=== PATIENT | male | born 1965 | race Caucasian/White ===

== ENCOUNTER 2020-02-18 18:02 | Emergency (ER) | payer BC, SELFPAY ==
[2020-02-18] VITALS (13 sets, daily range): BP systolic 186–228; BP diastolic 119–139; PULSE 69–99; RESP 9–31; TEMP 37.4; O2SAT 93–100
--- NOTE | ~2020-02-18 | XR_ITS ---
EXAMINATION: XR abdomen/kub 1V EXAM DATE: 02/18/2020 19:12 INDICATION: Left flank pain, 4mm UVJ stone TECHNIQUE: Frontal projection of the upper abdomen, frontal projection lower abdomen/pelvis for inter pretation. Correlation is made to CT abdomen pelvis same date. FINDINGS: Left UVJ stone likely identified, indicated. Nonobstructive bowel gas pattern. Mild bony de generative changes. IMPRESSION: Left UVJ stone likely identified. Reviewed, dictated and finalized at location A. [employer]
--- NOTE | ~2020-02-18 | CT_ITS ---
EXAMINATION: CT abdomen pelvis wo con EXAM DATE: 02/18/2020 18:46 INDICATION: Left Flank Pain. History kidney stones. TECHNIQUE: Spiral CT of the abdomen and pelvis was performed without contrast. Axial, coronal and sag ittal images were reviewed. The dose-length product (DLP) for this examination was 983.28 mGy-cm. T he exposure was tailored according to patient size (auto mA exposure control), and iterative reconstr uction (ASIR) was used as additional dose reduction technique. There is no prior study for compariso n. FINDINGS: Left ureterovesicular junction 4 cm stone, mild obstructive nephropathy. No other genitouri nary calcifications. The prostate is unremarkable. The bladder is unremarkable. The liver, spleen, adrenal glands and pancreas are unremarkable. Gallbladder is unremarkable. No biliary obstruction. There is no retroperitoneal or pelvic lymphadenopathy. There is mild scattered arteriosclerotic d isease. The appendix is normal. The stomach and small bowel are unremarkable. There is mild sigmoid colonic diverticulosis. There is no adjacent inflammatory change to suggest diverticulitis. No free intrape ritoneal gas. The heart is normal in size. There are no pericardial or pleural effusions. Small a mount of right lung base postinfectious residua. There are no osteoblastic or osteolytic lesions la ntified. Left-sided spondylolysis. IMPRESSION: Left UVJ 4 mm stone, mild obstructive nephropathy. Urologist consultants would appreciate KUB as baseline for follow-up, treatment planning. Reviewed, dictated and finalized at location A. [employer] IMPRESSION: Left UVJ 4 mm stone, mild obstructive nephropathy. Urologist valeriy palacios would appreciate KUB as baseline for follow-up, treatment planning.
[2020-02-18] MEDS: ONDANSETRON INJ 4 MG/2 ML VIAL IV PUSH (18:22)
[2020-02-18] MEDS: HYDROmorphone HCL INJ (*CRX) 2 MG/ML VIAL 1 MG IV PUSH (18:22)
--- NOTE | 2020-02-18 18:23 | ED.ABDPAIN ---
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 Related Data Allergies Allergy/AdvReac Type Severity Reaction Status Date / Time No Known Allergies Allergy Verified 02/18/20 18:31 Review of Systems Review of Systems: All systems reviewed & are unremarkable except as noted in HPI and below PMFSH Family History Family History Mother Acute myocardial infarction Social History Social History Smoking status: Current every day smoker Exam Const: General: alert and ill appearing Orientation/consciousness: patient oriented x3 Chest: Chest palpation & inspection: normal inspection of the chest Resp: Effort & Inspection: normal respiratory effort Cardio: Rate: regular rate Rhythm: regular rhythm GI: Inspection: non-distended GI Palp: Yes Soft to palpation, No Tenderness to palpation present (GI), No Guarding due to palpation present (GI) and No Rigid due to palpation Back/Spine/Pelvis: Back: CVA tenderness (Left CVA TTP) Skin: General skin exam: normal color Neuro: General: patient oriented x3, moves all extremities, no meningeal signs, no focal motor deficits and CN's II-XI intact bilaterally Cranial nerves: Yes Nystagmus not present Extrem: General: normal to inspection Psych: Mental Status: mental status grossly normal MDM - Abdominal Pain MDM Narrative Medical decision making narrative: Discussed results of w/u with patient who has a 4mm L UVJ stone. he is Ok with outpt management. Differential Diagnosis Differential diagnosis: Likely abdominal pain, calculus of kidney, diverticulitis, gastroenteritis and pancreatitis Medical Records Attestation: I reviewed the patient's medical records. Critical Care Time Critical Care Time Critical Care Time: No Discharge Plan Discharge Clinical Impression: Left ureteral calculus Patient Disposition: Home, Self-Care Condition: Improved Instructions: Antibiotic Form, Kidney Stones (ED) Additional Instructions: Encourage fluids and strain urine. F/U with PCP in 3-5 days for urology referral. Prescriptions: New hydrocodone-acetaminophen [[place]] 5-325 mg tablet 1 tablet PO Q6H PRN (Reason: pain) Qty: 20 RF: 0 ketorolac 10 mg tablet 10 mg PO Q6H 5 Days Qty: 20 RF: 0 tamsulosin [Flomax] 0.4 mg capsule 0.4 mg PO DAILY Qty: 10 RF: 0 ondansetron 4 mg tablet,disintegrating 4 mg PO Q8H PRN (Reason: nausea and vomiting) Qty: 20 RF: 0 Follow-up/Referrals: UNKNOWN,DOCTOR [Primary Care Provider] - Time of Disposition: 19:06
[2020-02-18] MEDS: SODIUM CHLORIDE 0.9% IV 1,000 ML 999 ML IV CONT (18:50)
[2020-02-18 18:55] LABS: Hemoglobin 14.5 g/dL (14.0-18.0); Red Blood Count 4.81 M/mm3 (4.70-6.10)
[2020-02-18 18:56] LABS: Hematocrit 42.7 % (40.0-54.0); Immature Granulocyte Percent A 0.3 % (0.0-0.0); Lymphocytes Percent Auto 19.1 % (18.0-42.0); Mean Corpuscular Hemoglobin 30.1 pg (27.0-31.0); Mean Corpuscular Volume 88.8 fL (78.0-102.0); Mean Platelet Volume 9.8 fl (8.7-11.0); Monocytes Percent Auto 5.6 % (2.0-11.0); Neutrophils Percent Auto 72.5 % (50.0-70.0); Platelet Count Result 209 K/mm3 (150-420); Red Cell Distribution Width 11.9 % (11.6-14.4)
[2020-02-18 18:57] LABS: Basophils Absolute Auto 0.06 K/mm3 (0.00-0.10); Basophils Percent Auto 0.5 % (0.0-1.0); Eosinophils Absolute Auto 0.22 K/mm3 (0.02-0.50); Immature Granulocyte Absolute 0.03 K/mm3 (0.00-0.00); Monocytes Absolute Auto 0.61 K/mm3 (0.10-0.90)
[2020-02-18 18:59] LABS: Anion Gap 9 mmol/L (8-16); Blood Urea Nitrogen 17 mg/dL (7-18); Calcium 8.9 mg/dL (8.5-10.1); Carbon Dioxide 26 mmol/L (21-32); Chloride 102 mmol/L (98-108); Estimated CRCL calculation 76 ml/min; Estimated Glomerular Filt Rate 56; Glucose 134 mg/dL (70-99); Osmolality Calculated 287 mOsm/kg (285-295); Potassium 3.9 mmol/L (3.5-5.1); Sodium 137 mmol/L (136-145)
[2020-02-18 19:00] LABS: Alanine Aminotransferase 23 U/L (16-63); Albumin Level 3.6 g/dL (3.4-5.0); Alkaline Phosphatase 103 U/L (46-116); Aspartate Amino Transferase 18 U/L (15-37); Bilirubin,Total 0.2 mg/dL (0.00-1.00); Lipase 158 U/L (73-393); Total Protein 8.1 g/dL (6.4-8.2)
[2020-02-18] MEDS: KETOROLAC 30 MG/ML VIAL (*BKC) IV PUSH (19:00)
[2020-02-18] MEDS: TAMSULOSIN HCL 0.4 MG CAPSULE PO (19:00)
[2020-02-18] MEDS: HYDROcodone/acetaminophen (*CRX) 5-325 MG TABLET 2 TAB PO (19:25)
[2020-02-18 19:29] LABS: INR 0.9; Partial Thromboplastin Time 28.8 SEC (23.90-30.70); Prothrombin Time 10.3 Seconds (9.64-11.0)
== END 2020-02-18 19:34 | disposition home or self-care (01) ==
PROVIDERS: Emergency Provider Family Medicine
DX: N20.1 Calculus of ureter (principal)
CPT/HCPCS: 36415; 74018; 74176; 80053; 83690; 85025; 85610; 85730; 96374; 96375; 99283; 99284; A9270; J1170; J1885; J2405; J7030

== ENCOUNTER 2021-02-05 10:52 | Outpatient (CLI) | payer BC, SELFPAY ==
[2021-02-05 11:44] LABS: SARS-CoV-2 RNA PCR Positive (Negative)
== END 2021-02-05 10:53 | disposition home or self-care (01) ==
LOC: CHSLAB 10:54
PROVIDERS: PCP Nurse Practitioner Family; Visit Provider Nurse Practitioner Family
DX: U07.1 COVID-19 (principal)
CPT/HCPCS: C9803; U0003; U0005

== ENCOUNTER 2021-02-13 09:10 | Outpatient (CLI) | payer BC, SELFPAY ==
[2021-02-13 10:41] LABS: SARS-CoV-2 RNA PCR Positive (Negative)
== END 2021-02-13 09:11 | disposition home or self-care (01) ==
LOC: CHSLAB 09:13
PROVIDERS: PCP Nurse Practitioner Family; Visit Provider Nurse Practitioner Family
DX: U07.1 COVID-19 (principal)
CPT/HCPCS: C9803; U0003; U0005